=== PATIENT | female | born 1960 ===

== ENCOUNTER 2017-11-06 15:31 | Inpatient (IN) | payer BC ==
[2017-11-06 17:33] LABS: BASO # 0.1 K/uL (0.0-0.2); BASO % 1.2 % (0.0-2.0); EOS # 0.3 K/uL (0.0-0.7); EOS % 3.4 % (0.0-4.0); HEMOGLOBIN 12.7 g/dL (12.0-16.0); LYMPH # 2.6 K/uL (1.0-4.3); LYMPH % 33.9 % (20.0-40.0); MEAN CELL VOLUME 90.2 fl (81.0-99.0); MEAN CORPUSCULAR HGB CONC 32.1 g/dL (33.0-37.0); MEAN PLATELET VOLUME 10.8 fl (7.2-11.7); MONO # 0.4 K/uL (0.0-0.8); MONO % 5.9 % (0.0-10.0); NEUT # 4.2 K/uL (1.8-7.0); NEUT % 55.6 % (50.0-75.0); NRBC % 0.1 % (0.0-0.0); RBC 4.39 Mil/uL (3.80-5.20); RED CELL DISTRIBUTION WIDTH 13.8 % (11.5-14.5); WHITE BLOOD COUNT 7.5 K/uL (4.8-10.8)
--- NOTE | 2017-11-06 17:49 | CT ---
PROCEDURE: CT HEAD WITHOUT CONTRAST. HISTORY: Unsteady gait COMPARISON: None available. TECHNIQUE: Axial computed tomography images were obtained through the head/brain without intravenous contrast. Radiation dose: Total exam DLP = 753.27 mGy-cm. This CT exam was performed using one or more of the following dose reduction techniques: Automated exposure control, adjustment of the mA and/or kV according to patient size, and/or use of iterative reconstruction technique. FINDINGS: HEMORRHAGE: No acute parenchymal, subarachnoid or extra-axial hemorrhage. BRAIN: No evidence of large acute infarct. No obvious parenchymal nor extra-axial masses or collections identified on this noncontrast study. Incidental note is made of a tiny curvilinear hyperdense focus within the left the lateral margin of the ambika best seen on axial image number 15 that is of uncertain etiology. This could represent small microcalcification in the possibility of a tiny cavernoma cannot be completely excluded. Ventricular and sulcal size are within range of normal for this patient's stated age. VENTRICLES: No obstructive hydrocephalus. CALVARIUM: Unremarkable. PARANASAL SINUSES: Unremarkable as visualized. No significant inflammatory changes. MASTOID AIR CELLS: Unremarkable as visualized. No inflammatory changes. OTHER FINDINGS: None. IMPRESSION: No acute intracranial hemorrhage. No evidence of large acute infarct. . There is a tiny semi lunar shaped density in the left aspect of the ambika which could represent tiny microcalcification. Possibility of tiny cavernoma not excluded.
[2017-11-06 18:03] LABS: ALB/GLOB RATIO 1.2 (1.0-2.1); ALBUMIN 4.4 g/dL (3.5-5.0); ALT/SGPT 36 U/L (9-52); AST/SGOT 30 U/L (14-36); BLOOD UREA NITROGEN 12 mg/dl (7-17); CALCIUM 9.5 mg/dL (8.4-10.2); GFR AFRICAN-AMERICAN > 60; GFR NON-AFRICAN AMERICAN > 60
[2017-11-06] MEDS ORDERED: Sodium Chloride 0.9% 1,000 ML IV STA (19:41)
--- NOTE | 2017-11-06 19:47 | ED PDOC ---
HPI: General Adult Time Seen by Provider: 11/06/17 15:50 Chief Complaint (Nursing): Dizziness/Lightheaded Chief Complaint (Provider): "steady gait" History Per: Patient History/Exam Limitations: no limitations Onset/Duration Of Symptoms: Days Have you had recent travel within the past 21 days to any of the following countries: [place], [place], [place] or [place]?: No Additional Complaint(s): 57 yo female with no medical problems brought in from Dr. Segal's office for evaluation of unsteady gait. Pt states on monday she was feeling very dizzy which she described as lightheadedness (not spinning). Pt states she was having nausea, vomiting and diarrhea also. Pt states she was unable to walk and almost passed out. [facility] Labs were completed but no CT. Pt states that she continued to have difficulty walking. PT states she felt unsteady over the weekending and had to hold on to something to walk. PT states she feels like she might fall with continued lightheadedness. Pt was seen by Dr. Segal today and states that she almost fell in the ER. Past Medical History Reviewed: Historical Data, Nursing Documentation, Vital Signs Vital Signs: Last Vital Signs Temp 98.4 F 11/06/17 19:38 Pulse 66 11/06/17 19:38 Resp 18 11/06/17 19:38 BP 138/73 11/06/17 19:38 Pulse Ox 100 11/06/17 19:38 - Medical History PMH: No Chronic Diseases - Surgical History Surgical History: No Surg Hx - Family History Family History: States: No Known Family Hx - Living Arrangements Living Arrangements: With Family - Home Medications Home Medications: Ambulatory Orders Medication Instructions Recorded No Known Home Med 11/06/17 - Allergies Allergies/Adverse Reactions: Allergies Allergy/AdvReac Type Severity Reaction Status Date / Time No Known Allergies Allergy Verified 11/06/17 16:53 Review of Systems ROS Statement: Except As Marked, All Systems Reviewed And Found Negative Constitutional: Negative for: Fever, Chills Gastrointestinal: Positive for: Nausea, Vomiting (3 days ago), Diarrhea (3 days ago). Negative for: Abdominal Pain Neurological: Positive for: Weakness, Incoordination, Dizziness. Negative for: Altered Mental Status, Headache Physical Exam - Reviewed Nursing Documentation Reviewed: Yes Vital Signs Reviewed: Yes - Physical Exam Appears: Positive for: Well, Non-toxic, No Acute Distress Head Exam: Positive for: ATRAUMATIC, NORMAL INSPECTION, NORMOCEPHALIC Skin: Positive for: Normal Color, Warm, DRY Eye Exam: Positive for: Normal appearance, EOMI, PERRL. Negative for: Nystagmus ENT: Positive for: Normal ENT Inspection Neck: Positive for: Normal, Painless ROM Cardiovascular/Chest: Positive for: Regular Rate, Rhythm Respiratory: Positive for: CNT, Normal Breath Sounds Gastrointestinal/Abdominal: Positive for: Normal Exam, Bowel Sounds, Soft Back: Positive for: Normal Inspection Extremity: Positive for: Normal ROM Neurologic/Psych: Positive for: Alert, cnc operator programmer II-XII, Oriented, Gait (PT appears cautious while walking. When patient is standing still she had difficulty not leaning and having to catch herself) - Laboratory Results Result Diagrams: 11/06/17 17:28 11/06/17 17:28 - ECG O2 Sat by Pulse Oximetry: 100 Medical Decision Making Medical Decision Making: Discussed with Dr. Segal for admission. PT was seen by Dr. Luna. Case discussed with Dr. Stout. He would like MRI with and without contract in the morning and MRA in the morning. He also would like NS at 100mL/hr and to be notified of HTN Disposition - Clinical Impression Clinical Impression: Unsteady gait - Patient ED Disposition Is Patient to be Admitted: Yes - Disposition Disposition Time: 19:51 Condition: STABLE
[2017-11-06 20:17] LABS: SQUAMOUS EPITHIAL < 1 /hpf (0-5); URINE BILIRUBIN NEGATIVE (NEGATIVE); URINE BLOOD NEGATIVE (NEGATIVE); URINE CLARITY CLEAR (Clear); URINE COLOR STRAW (YELLOW); URINE GLUCOSE (UA) NEG (Normal); URINE LEUKOCYTE ESTERASE TRACE Leu/uL (Negative); URINE NITRATE NEGATIVE (NEGATIVE); URINE PROTEIN NEGATIVE (NEGATIVE); URINE UROBILINOGEN 0.2-1.0 mg/dL (0.2-1.0)
[2017-11-07] MEDS: Sodium Chloride 0.9% 1,000 ML IV SCH ×2 (08:16→11:19)
[2017-11-07] MEDS ORDERED: Gadodiamide 287 MG/ML VIAL (15ML) IV ONE (09:12)
--- NOTE | 2017-11-07 10:46 | MRI ---
PROCEDURE: Magnetic Resonance Angiography Brain HISTORY: Ataxia. COMPARISON: Correlation made with concurrent MRI of the brain. Comparison also made with prior CT scan brain dated 11/06/2017. TECHNIQUE: 3D time of flight MR angiography of the intracranial arteries was performed. Rotating maximum intensity projection images were generated. FINDINGS: INTERNAL CAROTID ARTERIES: Unremarkable. The skull base, petrous, cavernous and supraclinoid segments are bilaterally widely patient. ANTERIOR CEREBRAL ARTERIES: Unremarkable. A1 and A2 segments are widely patent. Smaller distal branches unremarkable, as visualized. MIDDLE CEREBRAL ARTERIES: Unremarkable. M1 and M2 segments are widely patent. Perisylvian branches grossly symmetric. POSTERIOR CIRCULATION: Basilar Artery: Unremarkable. Distal Vertebral Arteries: Minor asymmetry of the distal vertebral arteries left-sided which is slightly larger in caliber/ more dominant than the right. . Posterior Cerebral Arteries: Unremarkable. Posterior Inferior Cerebellar Arteries: Unremarkable. ANEURYSM/ VASCULAR MALFORMATIONS: No evidence of large aneurysm nor vascular malformation. OTHER FINDINGS: None. IMPRESSION: Unremarkable MR angiography of the brain.
--- NOTE | 2017-11-07 11:01 | MRI ---
PROCEDURE: MRI of the brain dated 11/07/2017. HISTORY: Ataxia. COMPARISON: None. TECHNIQUE: Multiplanar, multisequence MR images of the brain were obtained with and without intravenous contrast enhancement. 14 cc of Omniscan injected for this examination. FINDINGS: HEMORRHAGE: No evidence of acute parenchymal, subarachnoid nor extra-axial hemorrhage. No evidence of hemosiderin deposition identified on gradient echo weighted sequence. DWI: No evidence of an acute or early subacute infarction seen on diffusion imaging. . BRAIN PARENCHYMA: There are a multiple tiny nonenhancing rounded any elliptical shaped foci of increased T2 signal scattered about the deep and subcortical white matter both cerebral hemispheres likely representing mild chronic sequela of small vessel disease. ENHANCEMENT: No enhancing parenchymal nor extra-axial masses or collections. VENTRICLES: No obstructive hydrocephalus. CRANIUM: No acute calvarial abnormalities orbits can be seen. ORBITS: Orbits and contents grossly unremarkable. PARANASAL SINUSES/MASTOIDS: Moderate mucosal thickening left with mild mucosal thickening right maxillary antrum. There is also mild mucosal thickening within the sphenoid and ethmoid air complexes extending superiorly into the inferior margin of the frontal sinus. Several left-sided inferior mastoid air cells are also opacified. VASCULAR SYSTEM: Visualized major vascular flow voids at skull base are patent. OTHER FINDINGS: None . IMPRESSION: No evidence of acute intracranial hemorrhage or infarct. No enhancing lesions seen.
[2017-11-07] MEDS ORDERED: Magnesium Sulfate 2 GM in Sodium Chloride 0.9% 100 ML IVPB ONE (14:54)
[2017-11-07] MEDS ORDERED: Dexamethasone 10 MG in Sodium Chloride 0.9% 50 ML IVPB ONE (14:57)
[2017-11-07] MEDS ORDERED: Magnesium Sulfate 2 gm/50 ml 2 GM/50 ML BAG IVPB ONE (16:00)
--- NOTE | 2017-11-07 18:06 | CP.PCM.CON ---
History of Present Illness - History of Present Illness History of Present Illness: Mrs. Mistry is a 57-year-old woman with no significant past medical history who was sent in from her PMD's office after having gait instability, nausea, vomiting, and vertigo. She has had these symptoms for several days and had gone to [facility], but did not receive imaging. She then went home , and felt better at first, then her symptoms returned. She states that she feels unstable, because she has the sensation that the ground is moving and she needs to hold on to objects while ambulating. She was having significant nausea , vomiting and several episodes of diarrhea. She was given Zofran and this subsided. She complains of a headache that is occipital in location and radiates to the front of her head. It is rated 8/10 in severity and makes her nausea worse. MRI and MRA of the brain were normal. Review of Systems - Review of Systems All systems: reviewed and no additional remarkable complaints except Past Patient History - Past Medical History & Family History Past Medical History?: No - Past Social History Smoking Status: Never Smoked - CARDIAC Hx Cardiac Disorders: No - PULMONARY Hx Respiratory Disorders: No - MUSCULOSKELETAL/RHEUMATOLOGICAL Hx Falls: No - PSYCHIATRIC Hx Substance Use: No - SURGICAL HISTORY Hx Surgeries: Yes Hx Hysterectomy: Yes - ANESTHESIA Hx Anesthesia: Yes Hx Anesthesia Reactions: No Meds Allergies/Adverse Reactions: Allergies Allergy/AdvReac Type Severity Reaction Status Date / Time No Known Allergies Allergy Verified 11/06/17 16:53 - Medications Medications: Current Medications Diazepam (Valium) 2 mg PO Q12 [facility] Last Admin: 11/07/17 16:16 Dose: Not Given Sodium Chloride (Sodium Chloride 0.9%) 1,000 mls @ 100 mls/hr IV .Q10H [facility] Stop: 11/08/17 02:10 Last Admin: 11/07/17 11:19 Dose: 100 mls/hr Ondansetron HCl (Zofran Inj) 4 mg IV Q4H PRN PRN Reason: Nausea/Vomiting Physical Exam - Constitutional Appears: Well - Head Exam Head Exam: ATRAUMATIC, NORMAL INSPECTION, NORMOCEPHALIC - Eye Exam Eye Exam: EOMI, Normal appearance, PERRL - ENT Exam ENT Exam: Mucous Membranes Moist, Normal Exam - Neck Exam Neck exam: Positive for: Normal Inspection - Respiratory Exam Respiratory Exam: Clear to Auscultation Bilateral, NORMAL BREATHING PATTERN - Cardiovascular Exam Cardiovascular Exam: REGULAR RHYTHM - GI/Abdominal Exam GI & Abdominal Exam: Normal Bowel Sounds, Soft. absent: Tenderness - Rectal Exam Rectal Exam: Deferred - Extremities Exam Extremities exam: Positive for: normal inspection - Back Exam Back exam: NORMAL INSPECTION - Neurological Exam Neurological exam: Abnormal Gait, Alert, CN II-XII Intact, Oriented x3, Reflexes Normal Additional comments: Wide-based gait. Strength is normal. Sensation is normal. No nystagmus noted. Romberg is negative, plantar responses are downgoing bilaterally. Results - Vital Signs Recent Vital Signs: Last Vital Signs Temp 97.8 F 11/07/17 16:04 Pulse 60 11/07/17 16:04 Resp 18 11/07/17 16:04 BP 107/61 11/07/17 16:04 Pulse Ox 96 11/07/17 16:04 - Labs Result Diagrams: 11/06/17 17:28 11/06/17 17:28 Labs: Laboratory Results - last 24 hr 11/06/17 11/06/17 11/06/17 17:28 17:28 19:21 WBC 7.5 RBC 4.39 Hgb 12.7 Hct 39.6 MCV 90.2 MCH 29.0 MCHC 32.1 L RDW 13.8 Plt Count 218 MPV 10.8 Neut % (Auto) 55.6 Lymph % (Auto) 33.9 [place] % (Auto) 5.9 Eos % (Auto) 3.4 Baso % (Auto) 1.2 Neut # (Auto) 4.2 Lymph # (Auto) 2.6 [place] # (Auto) 0.4 Eos # (Auto) 0.3 Baso # (Auto) 0.1 Sodium 145 Potassium 4.0 Chloride 102 Carbon Dioxide 26 Anion Gap 21 H BUN 12 Creatinine 0.7 Est GFR ( Amer) > 60 Est GFR (Non-Af Amer) > 60 Random Glucose 88 Calcium 9.5 Total Bilirubin 0.4 AST 30 ALT 36 Alkaline Phosphatase 58 Troponin I < 0.0120 Total Protein 8.0 Albumin 4.4 Globulin 3.6 Albumin/Globulin Ratio 1.2 Urine Color Urine Clarity Urine pH Ur Specific [place] Urine Protein Urine Glucose (UA) Urine Ketones Urine Blood Urine Nitrate Urine Bilirubin Urine Urobilinogen Ur Leukocyte Esterase Urine RBC (Auto) Urine Microscopic WBC Ur Squamous Epith Cells 11/06/17 20:00 WBC RBC Hgb Hct MCV MCH MCHC RDW Plt Count MPV Neut % (Auto) Lymph % (Auto) [place] % (Auto) Eos % (Auto) Baso % (Auto) Neut # (Auto) Lymph # (Auto) [place] # (Auto) Eos # (Auto) Baso # (Auto) Sodium Potassium Chloride Carbon Dioxide Anion Gap BUN Creatinine Est GFR ( Amer) Est GFR (Non-Af Amer) Random Glucose Calcium Total Bilirubin AST ALT Alkaline Phosphatase Troponin I Total Protein Albumin Globulin Albumin/Globulin Ratio Urine Color Straw Urine Clarity Clear Urine pH 6.0 Ur Specific [place] 1.008 Urine Protein Negative Urine Glucose (UA) Neg Urine Ketones Negative Urine Blood Negative Urine Nitrate Negative Urine Bilirubin Negative Urine Urobilinogen 0.2-1.0 Ur Leukocyte Esterase Trace Urine RBC (Auto) 1 Urine Microscopic WBC 4 Ur Squamous Epith Cells < 1 Assessment & Plan (1) Vertigo Assessment and Plan: The differential includes vestibular neuronitis, BPPV and vestibular/basilar migraine. Neuroimaging is normal. Will start Valium 2 mg BID for vertigo and treat headache with Decadron 10 mg IV once and Magnesium Sulfate 2 grams IV once. I recommend vestibular rehab. The patient was given my business card and she can follow up with me as an outpatient, once medically cleared. Thank you. Status: Acute Priority: High
--- NOTE | 2017-11-07 19:29 | CP.PCM.HP ---
History of Present Illness - History of Present Illness History of Present Illness: 57 yr admitted for unsteady gait and near falls Present on Admission - Present on Admission Any Indicators Present on Admission: No Past Patient History - Past Medical History & Family History Past Medical History?: No - Past Social History Smoking Status: Never Smoked - CARDIAC Hx Cardiac Disorders: No - PULMONARY Hx Respiratory Disorders: No - MUSCULOSKELETAL/RHEUMATOLOGICAL Hx Falls: No - PSYCHIATRIC Hx Substance Use: No - SURGICAL HISTORY Hx Surgeries: Yes Hx Hysterectomy: Yes - ANESTHESIA Hx Anesthesia: Yes Hx Anesthesia Reactions: No Meds Allergies/Adverse Reactions: Allergies Allergy/AdvReac Type Severity Reaction Status Date / Time No Known Allergies Allergy Verified 11/06/17 16:53 Physical Exam - Respiratory Exam Respiratory Exam: NORMAL BREATHING PATTERN - Cardiovascular Exam Cardiovascular Exam: REGULAR RHYTHM - GI/Abdominal Exam GI & Abdominal Exam: Normal Bowel Sounds Results - Vital Signs Recent Vital Signs: Last Vital Signs Temp 97.8 F 11/07/17 16:04 Pulse 60 11/07/17 16:04 Resp 18 11/07/17 16:04 BP 107/61 11/07/17 16:04 Pulse Ox 96 11/07/17 16:04 - Labs Result Diagrams: 11/06/17 17:28 11/06/17 17:28 Labs: Laboratory Results - last 24 hr 11/06/17 11/06/17 19:21 20:00 Troponin I < 0.0120 Urine Color Straw Urine Clarity Clear Urine pH 6.0 Ur Specific [place] 1.008 Urine Protein Negative Urine Glucose (UA) Neg Urine Ketones Negative Urine Blood Negative Urine Nitrate Negative Urine Bilirubin Negative Urine Urobilinogen 0.2-1.0 Ur Leukocyte Esterase Trace Urine RBC (Auto) 1 Urine Microscopic WBC 4 Ur Squamous Epith Cells < 1 Assessment & Plan - Assessment and Plan (Free Text) Assessment: Unsteady gait and near fall Vertigo 3 days ago Neurology MRI MRA Brain Monitor VS - Date & Time Date: 11/07/17 Time: 22:22
--- NOTE | 2017-11-08 10:58 | CP.PCM.PN ---
Subjective - Date & Time of Evaluation Date of Evaluation: 11/08/17 Time of Evaluation: 10:53 - Subjective Subjective: Ms. Mistry was seen and examined at the bedside. She is alert, oriented. She further states of her headache, dizziness has improved since receiving medication. She describe her pain as 5/10, located at the cervical area radiating to her temporal area. She denies any blurred vision, diplopia. She is able to tolerate PO intake without any nausea or vomiting. She further claims of needing assistance with ambulation. There was no untoward events overnight. Objective - Vital Signs/Intake and Output Vital Signs (last 24 hours): Temp Pulse Resp BP Pulse Ox 98.0 F 56 L 18 124/65 96 11/08/17 07:49 11/08/17 07:49 11/08/17 07:49 11/08/17 07:49 11/08/17 07:49 - Medications Medications: Current Medications Diazepam (Valium) 2 mg PO Q12 [facility] Last Admin: 11/08/17 09:47 Dose: Not Given Magnesium Oxide (Mag-Ox) 400 mg PO BID [facility] Ondansetron HCl (Zofran Inj) 4 mg IV Q4H PRN PRN Reason: Nausea/Vomiting - Labs Labs: 11/06/17 17:28 11/06/17 17:28 - Constitutional Appears: No Acute Distress - Head Exam Head Exam: NORMAL INSPECTION - Neurological Exam Neurological Exam: Alert, Awake, Oriented x3 Neuro motor strength exam: Left Upper Extremity: 4, Right Upper Extremity: 4, Left Lower Extremity: 4, Right Lower Extremity: 4 Additional comments: She is alert, able to answer questions and follow simple commands. Sensation remains intact. Assessment and Plan (1) Vertigo Assessment & Plan: Case discussed with Dr. Stout, continue all current medical and physical therapies. Recommend CT os the cervical spine for her neck pain and if stable/ normal, may discharge to home with outpatient vestibular rehab. and follow up with Dr. Stout in [address] [place] [address]. [address] [facility] [address]. Status: Acute
[2017-11-08] MEDS: Magnesium Oxide 400 mg Tab UD PO SCH ×2 (12:33→17:13)
--- NOTE | 2017-11-08 14:49 | CT ---
PROCEDURE: CT Cervical Spine without contrast HISTORY: Neck pain. COMPARISON: No prior study available for comparison. . TECHNIQUE: Axial computed tomography images were obtained of the cervical spine without the use of intravenous contrast. Coronal and sagittal reformatted images were created and reviewed. Radiation dose: Total exam DLP = 508.82 mGy-cm. This CT exam was performed using one or more of the following dose reduction techniques: Automated exposure control, adjustment of the mA and/or kV according to patient size, and/or use of iterative reconstruction technique. FINDINGS: VERTEBRAE: No acute compression fractures nor retropulsed fragments. Vertebral bodies exhibit normal stature. There is mild straightening of the normal cervical lordosis which could be due to patient positioning in the gantry however underlying element of mild muscle spasm may contribute. Vertebral bodies otherwise normally aligned. Facets normally aligned. DISCS/SPINAL CANAL/NEURAL FORAMINA: . At the C2-C3 level, there is relatively adequate disc height. No disc herniation or significant disc bulge. Minimal broad-based bulge of the posterior annulus does not cause any significant canal compromise nor cord compression. Exit foramina appear adequate. At the C3-C4 level, there is also adequate disc height. No disc herniation or significant disc bulge. Central canal and exit foramina are also adequate. At the C4-C5 level, there is minor adequate disc height. Minimal broad-based bulge of the posterior annulus is present. Disc results in some flattening of the ventral surface of the thecal sac though does not cause canal compromise nor cord compression. Exit foramina are also adequate. At the C5-C6 level, there is mild disc space narrowing. Small irregular disc ridge complex contiguous with mildly hypertrophic uncovertebral joints. The there is some flattening of the ventral surface of the thecal sac and may reach the ventral surface of the cord. Central canal is slightly narrowed. Exit foramina are mildly narrowed bilaterally. At the C6-C7 level, there is adequate disc height. No disc herniation or significant disc bulge. Central canal and exit foramina are also adequate. PARASPINAL SOFT TISSUES: Unremarkable. OTHER FINDINGS: Incidental note made of small approximately 6 mm x 4 mm elliptical shaped low-attenuation right lobe thyroid gland which could be further evaluated with thyroid ultrasound. Lung apices are clear. IMPRESSION: No acute compression fractures. Minor degenerative spondylosis most notably affecting the C5-C6 level with mild canal and bilateral foraminal narrowing as detailed above. Small elliptical shaped low-attenuation right lobe thyroid gland. Recommend followup thyroid ultrasound for further evaluation.
[2017-11-08 16:30] LABS: T4 7.37 ug/dl (5.5-11.0)
[2017-11-08 16:43] LABS: T3 0.899 nmol/L (1.49-2.60)
--- NOTE | 2017-11-08 17:49 | CP.PCM.PN ---
Subjective - Date & Time of Evaluation Date of Evaluation: 11/08/17 Time of Evaluation: 22:22 - Subjective Subjective: Above noted Objective - Vital Signs/Intake and Output Vital Signs (last 24 hours): Temp Pulse Resp BP Pulse Ox 98.1 F 6 L 20 111/66 98 11/08/17 15:54 11/08/17 15:54 11/08/17 15:54 11/08/17 15:54 11/08/17 15:54 - Medications Medications: Current Medications Diazepam (Valium) 2 mg PO Q12 [facility] Last Admin: 11/08/17 09:47 Dose: Not Given Magnesium Oxide (Mag-Ox) 400 mg PO BID [facility] Last Admin: 11/08/17 17:13 Dose: 400 mg Ondansetron HCl (Zofran Inj) 4 mg IV Q4H PRN PRN Reason: Nausea/Vomiting - Labs Labs: 11/06/17 17:28 11/06/17 17:28 - Respiratory Exam Respiratory Exam: NORMAL BREATHING PATTERN - Cardiovascular Exam Cardiovascular Exam: REGULAR RHYTHM - GI/Abdominal Exam GI & Abdominal Exam: Normal Bowel Sounds Assessment and Plan - Assessment and Plan (Free Text) Assessment: BPV Migraine Neuritis Unsteady gait and near fall Vertigo 3 days ago As per Neurology MRI MRA Brain wnl PT CT scan ?? thyroid US TSH
--- NOTE | 2017-11-08 21:42 | US ---
EXAM: US Soft Tissues Head and Neck, Thyroid EXAM DATE/TIME: 11/08/2017 3:09 PM CLINICAL HISTORY: 57 years old, female; Abnormal findings; Abnormal radiologic study of neck; Additional info: Small low attenuation r thyroid lobe per CT scan TECHNIQUE: Real-time ultrasound scan of the thyroid gland and soft tissues of the neck with image documentation. COMPARISON: Recent cervical spine CT of 2017-11-08 FINDINGS: Right lobe of the gland measures 5.1 x 1.7 x 1.4 cm. Left lobe of the gland measures 4.3 x 1.4 x 1.3 cm. Thyroid isthmus measures 3.3 mm in thickness. 2 nodules are visualized. 1) 9 x 6 x 6 mm nodule in the mid to upper pole of the right lobe. This appears hypoechoic, has well-defined margins, and is suspected to be solid versus complex cystic. It is wider than it is tall. No associated microcalcifications or increased vascularity. This nodule has an intermediate suspicion pattern, based on the [place] [employer] guidelines. Followup is recommended, as biopsy may be indicated for nodules with these features that are greater than 1 cm. 2) 5 x 4 x 6 mm nodule in the lower pole of the left lobe. This appears partially cystic, with an isoechoic, solid component. It has well-defined margins, and is wider than the distal. No associated microcalcifications or increased vascularity on color imaging. This nodule has a low suspicion pattern, based on the [place] [employer] guidelines. IMPRESSION: Bilateral thyroid nodules. One is seen in each lobe, the larger, on the right, measuring 9 mm. Followup is recommended. See above for remaining findings.
--- NOTE | 2017-11-08 23:59 | CON ---
DATE: ENDOCRINOLOGY CONSULTATION HISTORY OF PRESENT ILLNESS: This is a 57-year-old female with sudden onset of severe bouts of dizziness and lightheadedness with supervening unsteady gait and dysequilibrium and is now being admitted for further neurological workup and management. She also has developed nausea and vomiting with episodic loose watery diarrhea 2-3 days prior to admission. She was initially seen at the [facility] and was sent home with no clear diagnosis and also no head imaging procedures undertaken. She is being referred now for endocrine evaluation because of abnormal thyroid function studies. PAST MEDICAL HISTORY: Essentially unremarkable. MEDICATIONS: No long-term medications being taken at this time. FAMILY HISTORY: Positive for hypertension and heart disease. SOCIAL HISTORY: The patient has supportive family. No known substance use. REVIEW OF SYSTEMS: Admits to sudden onset of bifrontal and occipital headaches with severe bouts of dizziness and lightheadedness and supervening unsteady gait and dysequilibrium as mentioned. Also admits to generalized body weakness and malaise as noted. No chest pains or palpitations or PND. Her oral intake has been variable with nausea and dyspepsia and supervening vomiting and loose watery diarrhea over the last 2-3 days prior to admission. No recent alterations of bowel and urinary patterns otherwise. PHYSICAL EXAMINATION GENERAL: This is an average built female in no apparent distress. VITAL SIGNS: Blood pressure of 130/70, pulse of 70 beats per minute regular, temperature 98, respirations 20, height is 5 feet 2 inches, weight is 152 pounds. HEENT: Head normocephalic. Eyes; anicteric with pink conjunctivae. Funduscopy not possible at this time. Ears, nose and throat otherwise normal. NECK: Supple. Thyroid gland is normal in size. No carotid bruits or cervical adenopathy. CARDIOPULMONARY: Some adynamic precordium. S1, S2 is rapid and regular. LUNGS: Clear to auscultation. ABDOMEN: Flat, soft with positive bowel sounds. EXTREMITIES: No peripheral edema. Pulses are +2 bilaterally. LABORATORY DATA: The initial chemistries showed a BUN of 12, sodium 145, potassium 4.0, chloride 102, CO2 26, glucose 88 and creatinine 0.7. Her thyroid studies showed a T4 of 7.37 with a total T3 of 0.899 and a TSH of 0.42, both of which are low normal as noted. ASSESSMENT: This is a 57-year-old female with sudden onset of dizziness and lightheadedness with unsteady gait and dysequilibrium with supervening bifrontal headaches and intractable nausea, dyspepsia and vomiting with loose watery diarrhea and is being referred now for evaluation of abnormal thyroid function studies. She remains clinically euthyroid at this time and biochemically has evidence of the so-called acute sick euthyroid syndrome with low normal T3 and slightly suppressed TSH level as noted. Would be quite unlikely to have subclinical hyperthyroidism concerning the upper mentioned biochemical indices but again this has been excluded at this point in time. PLAN OF MANAGEMENT: As discussed with the patient and staff, we will obtain a comprehensive thyroid hormonal profile with a total and free T4 and TSH to be obtained tomorrow morning as ordered. We will also obtain thyroid antibodies to confirm and/or indicate the presence of underlying thyroid autoimmunity. We will obtain serial chemistries and supplement accordingly as needed. We will also obtain a baseline serum cortisol level as ordered. We will follow and advise accordingly. Candy Mcgrath MD
[2017-11-09 06:57] LABS: ALB/GLOB RATIO 1.2 (1.0-2.1); ALBUMIN 3.6 g/dL (3.5-5.0); ALT/SGPT 32 U/L (9-52); AST/SGOT 23 U/L (14-36); BLOOD UREA NITROGEN 17 mg/dl (7-17); GFR AFRICAN-AMERICAN > 60; GFR NON-AFRICAN AMERICAN > 60
[2017-11-09 07:06] LABS: T4 7.01 ug/dl (5.5-11.0)
[2017-11-09] MEDS: Magnesium Oxide 400 mg Tab UD PO SCH ×2 (08:36→16:24)
[2017-11-09] MEDS: guaiFENesin 100 mg/5 ml Syrup UD PO PRN ×2 (10:41→15:17)
--- NOTE | 2017-11-09 11:05 | CP.PCM.PN ---
Subjective - Date & Time of Evaluation Date of Evaluation: 11/09/17 Time of Evaluation: 11:00 - Subjective Subjective: Ms. Mistry was seen and examined at the bedside. She is alert, oriented. She claims of her dizziness and headache is much improved. She is able to follow simple commands. CT of the cervical yesterday showed no acute compression fractures. Minor degenerative spondylosis most notably affecting C5-C6 level with mild canal and bilateral foraminal narrowing as detailed above. Small elliptical shaped low-attenuation right lobe thyroid gland. There was no untoward events overnight. Objective - Vital Signs/Intake and Output Vital Signs (last 24 hours): Temp Pulse Resp BP Pulse Ox 97.7 F 64 18 115/72 97 11/09/17 07:53 11/09/17 07:53 11/09/17 07:53 11/09/17 07:53 11/09/17 07:53 - Medications Medications: Current Medications Diazepam (Valium) 2 mg PO Q12 [facility] Last Admin: 11/09/17 08:37 Dose: Not Given Guaifenesin (Robitussin) 100 mg PO Q6 PRN PRN Reason: Cough Last Admin: 11/09/17 10:41 Dose: 100 mg Magnesium Oxide (Mag-Ox) 400 mg PO BID [facility] Last Admin: 11/09/17 08:36 Dose: 400 mg Ondansetron HCl (Zofran Inj) 4 mg IV Q4H PRN PRN Reason: Nausea/Vomiting - Labs Labs: 11/06/17 17:28 11/09/17 06:00 - Constitutional Appears: No Acute Distress - Head Exam Head Exam: NORMAL INSPECTION - Neurological Exam Neurological Exam: Alert, Awake Neuro motor strength exam: Left Upper Extremity: 4, Right Upper Extremity: 4, Left Lower Extremity: 4, Right Lower Extremity: 4 Additional comments: Neurological improved from previous examination. She claims of headache and dizziness improved. Assessment and Plan (1) Vertigo Assessment & Plan: Case discussed with Dr. Stout, continue all current medical and physical regimens. Recommend outpatient vestibular/ physical rehab. Recommend to follow up with an outpatient neurologist in 2 weeks post discharge. Status: Acute
--- NOTE | 2017-11-09 13:39 | CP.PCM.PCO ---
Assessment/Plan - Assessment/Plan Assessment (Free Text): Pt stable, seen and cleared for d/c home by PT with outpatient therapy. Rx given. Pt seen and cleared for d/c home by Dr. Stout and Dr. Mcgrath. Per Dr. Mcgrath, no intervention for the thyroid nodules. Pt to f/u with Dr. Stout in [address] Segal in 1 week. Rx given as per med rec. Pt states she has Meclizine at home that was given to her from the hospital in [place]
--- NOTE | 2017-11-09 15:33 | CP.PCM.PN ---
Subjective - Date & Time of Evaluation Date of Evaluation: 11/09/17 Time of Evaluation: 22:22 - Subjective Subjective: Above noted Objective - Vital Signs/Intake and Output Vital Signs (last 24 hours): Temp Pulse Resp BP Pulse Ox 97.7 F 64 18 115/72 97 11/09/17 07:53 11/09/17 07:53 11/09/17 07:53 11/09/17 07:53 11/09/17 07:53 - Medications Medications: Current Medications Acetaminophen (Tylenol 325mg Tab) 650 mg PO Q6 PRN PRN Reason: Headache Last Admin: 11/09/17 15:17 Dose: 650 mg Diazepam (Valium) 2 mg PO Q12 [facility] Last Admin: 11/09/17 08:37 Dose: Not Given Guaifenesin (Robitussin) 100 mg PO Q6 PRN PRN Reason: Cough Last Admin: 11/09/17 15:17 Dose: 100 mg Magnesium Oxide (Mag-Ox) 400 mg PO BID [facility] Last Admin: 11/09/17 08:36 Dose: 400 mg Ondansetron HCl (Zofran Inj) 4 mg IV Q4H PRN PRN Reason: Nausea/Vomiting - Labs Labs: 11/06/17 17:28 11/09/17 06:00 - Respiratory Exam Respiratory Exam: NORMAL BREATHING PATTERN - Cardiovascular Exam Cardiovascular Exam: REGULAR RHYTHM - GI/Abdominal Exam GI & Abdominal Exam: Normal Bowel Sounds Assessment and Plan - Assessment and Plan (Free Text) Assessment: BPV Migraine Neuritis Unsteady gait and near fall Vertigo 3 days ago As per Neurology MRI MRA Brain wnl PT Meds CT scan ?? thyroid US Nodules As per Endo
[2017-11-09 15:58] VITALS: BP 113/71; PULSE 60; RESP 20; TEMP 97.6; O2SAT 99
--- NOTE | 2017-11-10 00:49 | PN ---
DATE: ENDOCRINOLOGY FOLLOWUP NOTE LOCATION: Room number 652. SUBJECTIVE: This is 57-year-old female admitted with a constellation of occipital pain and cervicalgia with supervening dysequilibrium and unsteady gait with marked dizziness and lightheadedness and is now being followed closely by neurology with a comprehensive and full neurological workup undertaken thereof. She is also being followed closely for metabolic management because of abnormal thyroid function studies and also a recent thyroid ultrasound undertaken thereof. LABORATORY DATA: Her repeat chemistries today showed a BUN of 17, sodium of 144, potassium of 4.3, chloride of 107, CO2 of 27, glucose of 90 and creatinine of 0.7. The repeat thyroid studies showed a T4 of 7.01 with a TSH of 2.37 and a free T4 of 0.89 which is remarkable improvement compared to the initial admitting levels of suppressed T3 and TSH values as noted. IMPRESSION AND PLAN: This is a classical manifestation of the so-called acute sick euthyroid syndrome which has improved accordingly after clinical status improves thereof. Her thyroid ultrasound showed a presence of a slight thyroid lobe enlargement with the right lobe measuring 5.1 x 1.7 cm and the left lobe measuring 4.3 x 1.4 cm with small nodules noted in the right lobe as noted. No underlying calcifications or solid nodules noted. 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 She remains clinically and biochemically euthyroid at this time. No indication for any kind of levothyroxine suppressive therapy at this time. We will obtain serial thyroid studies annually as she goes for yearly wellness check up otherwise. We will follow. Candy Mcgrath MD
--- NOTE | 2017-11-10 18:28 | CARD ---
APPROVED REPORT EKG Measurement Heart [id number] <Conclusion> Sinus bradycardia Nonspecific T wave abnormality Abnormal ECG
== END 2017-11-09 16:45 | disposition home or self-care (01) | DRG 149 ==
LOC: H.ER 15:31 → H.ERHOLD 19:36 → H.MEDSURG1 22:22 → OBSVTOIN 11-08 19:41
PROVIDERS: ADMIT Family Medicine Geriatric Medicine; ATTEND Family Medicine Geriatric Medicine
DX: H81.10 Benign paroxysmal vertigo, unspecified ear (principal); E04.2 Nontoxic multinodular goiter; E07.81 Sick-euthyroid syndrome; G43.909 Migraine, unspecified, not intractable, without status migrainosus; M79.2 Neuralgia and neuritis, unspecified; R19.7 Diarrhea, unspecified